=== PATIENT | female | born 1980 | race Caucasian/White ===

== ENCOUNTER 2017-01-30 05:16 | Emergency (ER) | payer SELFPAY ==
[2017-01-30] MEDS ORDERED: PREDNISONE 20 MG TABLET PO ONE (05:20)
[2017-01-30] MEDS ORDERED: IPRATROPIUM/ALBUTEROL 0.5-2.5 MG/3 ML AMPUL NEB ONE ×2 (05:20→06:12)
[2017-01-30] MEDS: ALBUTEROL SULFATE 0.083% NEB 2.5 MG/3 ML AMPUL NEB SCH ×2 (05:25→05:36)
--- NOTE | 2017-01-30 06:15 | ER Document Report ---
ED General - General Chief Complaint: Asthma Exacerbation Stated Complaint: DIFFICULTY BREATHING Time Seen by Provider: 01/30/17 06:07 Mode of Arrival: Ambulatory Information source: Patient Notes: 36-year-old female history of asthma who smokes 2 cigarettes daily who was last intubated 15 years ago presents with complaints of shortness of breath. Patient denies any DVT or PE risk factors no she has been wheezing a very tight over the past 2 days. Patient denies any fevers or productive cough TRAVEL OUTSIDE OF THE [place] IN LAST 30 DAYS: No - HPI Onset: Other Onset/Duration: Persistent Quality of pain: No pain Severity: Mild Pain Level: Denies Associated symptoms: Nonproductive cough, Shortness of breath Exacerbated by: Walking Relieved by: Denies Similar symptoms previously: Yes Recently seen / treated by doctor: Yes - Related Data Allergies/Adverse Reactions: Penicillins Allergy (Intermediate, Verified 05/05/14 02:26) Rash, Hives metronidazole [Metronidazole] Adverse Reaction (Verified 10/22/15 22:15) Past Medical History - Social History Smoking Status: Current Every Day Smoker Cigarette use (# per day): Yes Chew tobacco use (# tins/day): No Smoking Education Provided: Yes - Patient counselled regarding cessation for 4 minutes Family History: CAD, CVA, DM, Hyperlipidemia, Hypertension, Other - asthma Patient has suicidal ideation: No Patient has homicidal ideation: No Pulmonary Medical History: Reports: Hx Asthma, Hx COPD Renal/ Medical History: Denies: Hx Peritoneal Dialysis Psychiatric Medical History: Reports: Hx Depression Past Surgical History: Reports: Hx Gynecologic Surgery, Hx Orthopedic Surgery - Immunizations Immunizations up to date: Yes Hx Diphtheria, Pertussis, Tetanus Vaccination: Yes Review of Systems - Review of Systems Notes: PHYSICAL EXAMINATION: GENERAL: Well-appearing, well-nourished and in no acute distress. HEAD: Atraumatic, normocephalic. EYES: Pupils equal round and reactive to light, extraocular movements intact, conjunctiva are normal. ENT: Nares patent, oropharynx clear without exudates. Moist mucous membranes. NECK: Normal range of motion, supple without lymphadenopathy LUNGS: Breath sounds clear to auscultation bilaterally and equal. No wheezes rales or rhonchi. HEART: Regular rate and rhythm without murmurs ABDOMEN: Soft, nontender, nondistended abdomen. No guarding, no rebound. No masses appreciated. Female : deferred Musculoskeletal: Normal range of motion, no pitting or edema. No cyanosis. NEUROLOGICAL: Cranial nerves grossly intact. Normal speech, normal gait. Normal sensory, motor exams PSYCH: Normal mood, normal affect. SKIN: Warm, Dry, normal turgor, no rashes or lesions noted. Physical Exam - Vital signs Vitals: Temp Pulse Resp BP Pulse Ox 97.9 F 74 22 H 134/85 H 97 01/30/17 05:19 01/30/17 05:19 01/30/17 05:19 01/30/17 05:19 01/30/17 05:19 Course - Re-evaluation Re-evalutation: 01/30/17 06:13 Breath sounds at this time after 1 DuoNeb are clear, patient notes she is breathing better but is still having a little difficulty therefore I will give her a second DuoNeb otherwise patient looks well vital signs are stable and expect discharge After performing a Medical Screening Examination, I estimate there is LOW risk for ACUTE CORONARY SYNDROME, RESPIRATORY FAILURE, SEPSIS OR MENINGITIS, thus I consider the discharge disposition reasonable. I have reevaluated this patient multiple times and no significant life threatening changes are noted. The patient and I have discussed the diagnosis and risks, and we agree with discharging home with close follow-up. We also discussed returning to the Emergency Department immediately if new or worsening symptoms occur. We have discussed the symptoms which are most concerning (e.g., changing or worsening pain, trouble swallowing or breathing, neck stiffness, fever) that necessitate immediate return. 01/30/17 06:50 Patient's notes she wishes to be discharged, states second DuoNeb has resolved her symptoms Patient instructed on risks and benefits of medications prescribed. Denies any concerns regarding such. - Vital Signs Vital signs: Temp Pulse Resp BP Pulse Ox 97.9 F 74 22 H 134/85 H 97 01/30/17 05:19 01/30/17 05:19 01/30/17 05:19 01/30/17 05:19 01/30/17 05:19 Discharge - Discharge Clinical Impression: Asthma exacerbation, Shortness of breath Condition: Stable Disposition: HOME, SELF-CARE Instructions: Stop Smoking ([facility]), Asthma ([facility]) Additional Instructions: Follow up with your physician tomorrow for further care or return to the ED IMMEDIATELY if symptoms worsen or new concerns occur. If you cannot afford to follow up with your primary care physician a list of low cost clinics have been provided at the end of your discharge papers as well. Prescriptions: Albuterol Sulfate [Proair HFA Inhalation Aerosol 8.5 gm MDI] 2 puff IH Q4H PRN # 1 mdi PRN Reason: Prednisone [Deltasone 20 mg Tablet] 3 tab PO DAILY 5 Days
[2017-01-30 07:09] VITALS: BP 123/77
== END 2017-01-30 07:00 | disposition home or self-care (01) ==
LOC: ER 05:16
DX: J45.901 Unspecified asthma with (acute) exacerbation (principal); R06.02 Shortness of breath; F17.210 Nicotine dependence, cigarettes, uncomplicated
CPT/HCPCS: 94640 ×2; 99284; J7512; J7620

== ENCOUNTER 2017-05-15 09:00 | Emergency (ER) | payer SELFPAY ==
--- NOTE | 2017-05-15 09:34 | ER Document Report ---
HPI - HPI Pain Level: 4 - REPRODUCTIVE Reproductive: DENIES: : - DERM Skin Color: Normal Past Medical History - Social History Family History: CAD, CVA, DM, Hyperlipidemia, Hypertension, Other - asthma Patient has suicidal ideation: No Patient has homicidal ideation: No Pulmonary Medical History: Reports: Hx Asthma, Hx COPD Renal/ Medical History: Denies: Hx Peritoneal Dialysis Psychiatric Medical History: Reports: Hx Depression Past Surgical History: Reports: Hx Gynecologic Surgery, Hx Orthopedic Surgery - Immunizations Immunizations up to date: Yes Hx Diphtheria, Pertussis, Tetanus Vaccination: Yes Vertical Provider Document - INFECTION CONTROL TRAVEL OUTSIDE OF THE [place] IN LAST 30 DAYS: No - RESPIRATORY O2 Sat by Pulse Oximetry: 100 Course - Vital Signs Vital signs: Temp Pulse Resp BP Pulse Ox 97.6 F 64 20 137/88 H 100 05/15/17 09:24 05/15/17 09:24 05/15/17 09:24 05/15/17 09:24 05/15/17 09:24
[2017-05-15] MEDS ORDERED: IPRATROPIUM/ALBUTEROL 0.5-2.5 MG/3 ML AMPUL NEB ONE ×2 (09:40→09:43)
[2017-05-15] MEDS ORDERED: PREDNISONE 20 MG TABLET PO ONE (09:40)
[2017-05-15] MEDS ORDERED: ALBUTEROL SULFATE 0.083% NEB 2.5 MG/3 ML AMPUL NEB ONE (09:40)
--- NOTE | 2017-05-15 09:41 | ER Document Report ---
ED Respiratory Problem - General Chief Complaint: Asthma Exacerbation Stated Complaint: DIFFICULTY BREATHING Time Seen by Provider: 05/15/17 09:34 Mode of Arrival: Ambulatory Information source: Patient Notes: 36-year-old female with a history of asthma he has increased wheezing and tightness today. She is using her neck accessory muscles with pursed lipped exhalation. She ran out of albuterol for her nebulizer. Quit smoking 1 month ago. No fever or chills. No chest pain. TRAVEL OUTSIDE OF THE [place] IN LAST 30 DAYS: No - Related Data Allergies/Adverse Reactions: Penicillins Allergy (Intermediate, Verified 05/15/17 09:24) Rash, Hives metronidazole [Metronidazole] Adverse Reaction (Verified 05/15/17 09:24) Past Medical History - General Information source: Patient - Social History Smoking Status: Former Smoker Frequency of alcohol use: None Drug Abuse: None Lives with: Family Family History: CAD, CVA, DM, Hyperlipidemia, Hypertension, Other - asthma Patient has suicidal ideation: No Patient has homicidal ideation: No Pulmonary Medical History: Reports: Hx Asthma, Hx COPD Renal/ Medical History: Denies: Hx Peritoneal Dialysis Psychiatric Medical History: Reports: Hx Depression Past Surgical History: Reports: Hx Gynecologic Surgery, Hx Orthopedic Surgery - Immunizations Immunizations up to date: Yes Hx Diphtheria, Pertussis, Tetanus Vaccination: Yes Review of Systems - Review of Systems Constitutional: No symptoms reported EENT: No symptoms reported Cardiovascular: No symptoms reported Respiratory: See HPI Gastrointestinal: No symptoms reported Genitourinary: No symptoms reported Female Genitourinary: No symptoms reported Musculoskeletal: No symptoms reported Skin: No symptoms reported Hematologic/Lymphatic: No symptoms reported Neurological/Psychological: No symptoms reported Physical Exam - Vital signs Vitals: Temp Pulse Resp BP Pulse Ox 97.6 F 63 26 H 137/98 H 100 05/15/17 09:23 05/15/17 09:23 05/15/17 09:23 05/15/17 09:23 05/15/17 09:23 Interpretation: Tachypneic - General General appearance: Alert In distress: None - HEENT Head: Normocephalic, Atraumatic Eyes: Normal Conjunctiva: Normal Pupils: PERRL Nasal: Normal Mouth/Lips: Normal Neck: Supple. No: Lymphadenopathy - Respiratory Respiratory status: No respiratory distress Chest status: Nontender Breath sounds: Decreased air movement, Wheezing - Faint expiratory bilateral, not moving much air Chest palpation: Normal - Cardiovascular Rhythm: Regular Heart sounds: Normal auscultation Murmur: No - Abdominal Inspection: Normal Distension: No distension Bowel sounds: Normal Tenderness: Nontender Organomegaly: No organomegaly - Back Back: Normal, Nontender. No: CVA tenderness - Extremities General upper extremity: Normal inspection, Nontender, Normal color, Normal ROM , Normal temperature General lower extremity: Normal inspection, Nontender, Normal color, Normal ROM , Normal temperature, Normal weight bearing. No: Savannah's sign - Neurological Neuro grossly intact: Yes Cognition: Normal Orientation: AAOx4 [place] Coma Scale Eye Opening: Spontaneous [place] Coma Scale Verbal: Oriented [place] Coma Scale Motor: Obeys Commands [place] Coma Scale Total: 15 Speech: Normal Motor strength normal: LUE, RUE, LLE, RLE Sensory: Normal - Psychological Associated symptoms: Normal affect, Normal mood - Skin Skin Temperature: Warm Skin Moisture: Dry Skin Color: Normal Skin irregularity: negative: Rash Course - Re-evaluation Re-evalutation: 05/15/17 11:22 Patient no longer in distress respiratory rate is normal no pursed lip breathing there is no wheezing at this time. Moving air better, chest x-ray looks like COPD no infiltrate. - Vital Signs Vital signs: Temp Pulse Resp BP Pulse Ox 97.3 F 60 16 125/65 100 05/15/17 11:33 05/15/17 11:33 05/15/17 11:33 05/15/17 11:33 05/15/17 11:33 Discharge - Discharge Clinical Impression: Asthma exacerbation Condition: Good Disposition: HOME, SELF-CARE Instructions: Asthma ([facility]), Inhaled Bronchodilators ([facility]), Steroid Medication Additional Instructions: to er if worse use the nebulizer and MDI steroids for 4 more days Referral to Dr. Tay the custom grinder Please complete the patient satisfaction survey if you get one, and return it.. If you do not receive a survey, then you can go to the [facility] website, [email or web address] and place your comments about your very good care. Thank you very much. It was a pleasure being your medical provider today. Prescriptions: Albuterol Sulfate [Ventolin 0.083% Neb 2.5 mg/3 mL Ampul] 2.5 mg NEB Q3HP PRN # 25 vial PRN Reason: Albuterol Sulfate [Proair HFA Inhalation Aerosol 8.5 gm MDI] 2 puff IH Q3HP PRN #1 [id number].aer.[email or web address] PRN Reason: Prednisone [Deltasone 20 mg Tablet] 40 mg PO DAILY #8 tablet Forms: Return to Work Referrals: JUAN TAY MD [ACTIVE STAFF] - Follow up as needed
[2017-05-15 11:34] VITALS: BP 125/65
--- NOTE | 2017-05-15 11:53 | RADIOLOGY REPORT (SQ) ---
EXAM DESCRIPTION: CHEST PA/LAT COMPLETED DATE/TIME: 05/15/2017 11:08 am REASON FOR STUDY: sob, hx asthma COMPARISON: 01/30/2016, 09/16/2014 EXAM PARAMETERS: NUMBER OF VIEWS: two views TECHNIQUE: Digital Frontal and Lateral radiographic views of the chest acquired. RADIATION DOSE: NA LIMITATIONS: none FINDINGS: LUNGS AND PLEURA: No opacities, masses or pneumothorax. No pleural effusion. MEDIASTINUM AND HILAR STRUCTURES: No masses or contour abnormalities. HEART AND VASCULAR STRUCTURES: Heart normal size. No evidence for failure. BONES: No acute findings. HARDWARE: None in the chest. OTHER: No other significant finding. IMPRESSION: NO SIGNIFICANT RADIOGRAPHIC FINDING IN THE CHEST. TECHNICAL DOCUMENTATION: JOB ID: [id number] [employer]- All Rights Reserved
== END 2017-05-15 11:34 | disposition home or self-care (01) ==
LOC: ER 09:00
DX: J44.9 Chronic obstructive pulmonary disease, unspecified (principal); Z87.891 Personal history of nicotine dependence; Z88.0 Allergy status to penicillin
CPT/HCPCS: 94640 ×2; 99283; 71020; J7512; J7620

== ENCOUNTER 2017-10-15 10:22 | Emergency (ER) | payer SELFPAY ==
[2017-10-15] MEDS ORDERED: MORPHINE SULFATE IR 15 MG TABLET PO ONE (11:38)
--- NOTE | 2017-10-15 11:41 | ER Document Report ---
HPI - HPI Pain Level: 4 Notes: Patient is a 37-year-old female who presents the ED complaining of left knee pain, swelling, and bruising status post injury yesterday. Patient states that she was ice skating when she fell directly on her knee. Patient states that she cannot weight-bear and she cannot walk on that knee. Patient states that she has trouble even flexing the knee without severe pain. Patient has not had anything for pain at this time. She has no other concerns or complaints. Patient states that she did have surgery twice on that knee before. Denies any headache, fever, head injury, neck pain, chest pain, palpitations, syncope, cough, shortness of breath, wheeze, dyspnea, abdominal pain, nausea/vomiting/ diarrhea, urinary retention, dysuria, hematuria, loss of control of bowel or bladder, numbness/tingling, saddle anesthesia, muscle paralysis/weakness, or rash. - ROS Systems Reviewed and Negative: Yes All other systems reviewed and negative - CONSTITUTIONAL Constitutional: DENIES: Fever, Chills - REPRODUCTIVE Reproductive: DENIES: : - MUSCULOSKELETAL Musculoskeletal: REPORTS: Extremity pain - left knee Past Medical History - Social History Smoking Status: Current Every Day Smoker Chew tobacco use (# tins/day): No Frequency of alcohol use: None Drug Abuse: None Family History: CAD, CVA, DM, Hyperlipidemia, Hypertension, Other - asthma Patient has suicidal ideation: No Patient has homicidal ideation: No Pulmonary Medical History: Reports: Hx Asthma, Hx COPD Renal/ Medical History: Denies: Hx Peritoneal Dialysis Psychiatric Medical History: Reports: Hx Depression Past Surgical History: Reports: Hx Gynecologic Surgery - endometriosis, Hx Orthopedic Surgery - left knee x 2 - Immunizations Immunizations up to date: Yes Hx Diphtheria, Pertussis, Tetanus Vaccination: Yes Vertical Provider Document - CONSTITUTIONAL Agree With Documented VS: Yes Notes: PHYSICAL EXAMINATION: GENERAL: Well-appearing, well-nourished and in no acute distress. LUNGS: Breath sounds clear to auscultation bilaterally and equal. No wheezes rales or rhonchi. HEART: Regular rate and rhythm without murmurs, rubs, gallops. Musculoskeletal: Left knee: + ecchymosis anteriorly, + swelling anteriorly, LROM to passive/active. Pt would not allow for flexion of the knee of further manipulation for testing. Extremities: No cyanosis, clubbing, or edema b/l. Peripheral pulses 2+. Capillary refill less than 3 seconds. NEUROLOGICAL: Normal speech. Normal sensory, motor exams PSYCH: Normal mood, normal affect. SKIN: Warm, Dry, normal turgor, no rashes or lesions noted. - INFECTION CONTROL TRAVEL OUTSIDE OF THE [place] IN LAST 30 DAYS: No - RESPIRATORY O2 Sat by Pulse Oximetry: 100 Course - Re-evaluation Re-evalutation: 10/15/17 11:43 Patient is an afebrile, well-hydrated, 37-year-old female who presents the ED with a left knee contusion. Vitals are stable. PE is otherwise unremarkable for any neurovascular compress, obvious tendon/ligament rupture, obvious fracture/dislocation, septic joint. X-ray was unremarkable for any acute pathology. Patient would not allow for thorough physical exam however. Knee immobilizer was placed and crutches were provided. I did give her 1 tablet of morphine sulfate today. I will send him a prescription for naproxen. Recommend conservative measures for symptoms otherwise. Schedule an appointment with orthopedics for further evaluation and management. Recheck with your PCM in 1 week as well. Return to the ED with any worsening/ concerning symptoms otherwise as reviewed discharge. Patient is in agreement. - Vital Signs Vital signs: Temp Pulse Resp BP Pulse Ox 98.7 F 72 16 148/71 H 100 10/15/17 10:27 10/15/17 10:27 10/15/17 10:27 10/15/17 10:27 10/15/17 10:27 Discharge - Discharge Clinical Impression: Contusion of left knee Qualifiers: Encounter type: initial encounter Qualified Code(s): S80.02XA - Contusion of left knee, initial encounter Condition: Stable Disposition: HOME, SELF-CARE Instructions: Ice & Elevation ([facility]), Knee Immobilizing Splint ([facility]), Use of Crutches ([facility]) Additional Instructions: Rest, Ice, Compression, Elevation Tylenol/ibuprofen as needed Light stretches daily Strength exercises as able Moist heat and massage may help F/u with your PCP in 3-5 days for a recheck Call and schedule an appointment with orthopedics for further evaluation and management Return to the ED with any worsening symptoms and/or development of fever, headache, chest pain, palpitations, syncope, shortness of breath, trouble breathing, abdominal pain, n/v/d, muscle weakness/paralysis, numbness/tingling, swelling, redness, or other worsening symptoms that are concerning to you. Prescriptions: Naproxen 500 mg PO BID PRN #30 tablet PRN Reason: Forms: Elevated Blood Pressure, Smoking Cessation Education Referrals: [facility] ([facility]) [Provider Group] - Follow up as needed
--- NOTE | 2017-10-15 11:42 | RADIOLOGY REPORT (SQ) ---
EXAM DESCRIPTION: KNEE LEFT 4 VIEW COMPLETED DATE/TIME: 10/15/2017 11:33 am REASON FOR STUDY: left knee pain s/p injury COMPARISON: None. NUMBER OF VIEWS: Four views. TECHNIQUE: AP, lateral, and both oblique radiographic images acquired of the left knee. LIMITATIONS: None. FINDINGS: MINERALIZATION: Normal. BONES: No acute fracture or dislocation. No worrisome bone lesions. JOINT: No effusion. SOFT TISSUES: No soft tissue swelling. No radio-opaque foreign body. OTHER: No other significant finding. IMPRESSION: NEGATIVE STUDY OF THE LEFT KNEE. NO RADIOGRAPHIC EVIDENCE OF ACUTE INJURY. TECHNICAL DOCUMENTATION: JOB ID: [id number] [employer]- All Rights Reserved
[2017-10-15 12:01] VITALS: BP 147/98
== END 2017-10-15 12:01 | disposition home or self-care (01) ==
LOC: ER 10:22
DX: S80.02XA Contusion of left knee, initial encounter (principal); M25.562 Pain in left knee; V00.211A Fall from ice-skates, initial encounter; Y93.21 Activity, ice skating; F17.200 Nicotine dependence, unspecified, uncomplicated; J44.9 Chronic obstructive pulmonary disease, unspecified
CPT/HCPCS: 99283; 73562; L1830

== ENCOUNTER → 2018-05-06 | Outpatient (CLI) | payer MEDICAID ==
--- NOTE | 2018-05-06 16:39 | RADIOLOGY REPORT (SQ) ---
EXAM DESCRIPTION: HAND RIGHT 3 VIEWS COMPLETED DATE/TIME: 05/06/2018 4:15 pm REASON FOR STUDY: RT HAND PAIN;RT WRIST PAIN M79.641 PAIN IN RIGHT HAND M25.531 PAIN IN RIGHT WRIS T COMPARISON: None. EXAM PARAMETERS: NUMBER OF VIEWS: Three views. TECHNIQUE: AP, lateral and oblique radiographic images acquired of the right hand. LIMITATIONS: None. FINDINGS: MINERALIZATION: Normal. BONES: No acute fracture or dislocation. No worrisome bone lesions. JOINTS: No effusions. SOFT TISSUES: No soft tissue swelling. No foreign body. OTHER: No other significant finding. IMPRESSION: NEGATIVE STUDY OF THE RIGHT HAND. NO RADIOGRAPHIC EVIDENCE OF ACUTE INJURY. TECHNICAL DOCUMENTATION: JOB ID: [id number] [employer]- All Rights Reserved Reading location - IP/workstation name: [email or web address]
--- NOTE | 2018-05-06 16:46 | RADIOLOGY REPORT (SQ) ---
EXAM DESCRIPTION: WRIST RIGHT 3 VIEWS COMPLETED DATE/TIME: 05/06/2018 4:15 pm REASON FOR STUDY: RT HAND PAIN;RT WRIST PAIN M79.641 PAIN IN RIGHT HAND M25.531 PAIN IN RIGHT WRIS T COMPARISON: None. NUMBER OF VIEWS: Three views. TECHNIQUE: AP, lateral, and oblique radiographic images acquired of the right wrist. LIMITATIONS: None. FINDINGS: MINERALIZATION: Normal. BONES: No acute fracture or dislocation. No worrisome bone lesions. Normal alignment. SOFT TISSUES: No soft tissue swelling. No foreign body. OTHER: No other significant finding. IMPRESSION: NEGATIVE STUDY OF THE RIGHT WRIST. NO RADIOGRAPHIC EVIDENCE OF ACUTE INJURY. TECHNICAL DOCUMENTATION: JOB ID: [id number] [employer]- All Rights Reserved Reading location - IP/workstation name: [email or web address]
== END ==
LOC: OD 15:31
PROVIDERS: ATTEND Nurse Practitioner Family
DX: M79.641 Pain in right hand (principal); M25.531 Pain in right wrist

== ENCOUNTER → 2018-07-28 | Outpatient (CLI) | payer MEDICAID ==
[2018-07-28 14:40] LABS: EPITHELIALS (WET MOUNT) 3+ EPITHELIALS SEEN; T.VAGINALIS (WET MOUNT) NO TRICHOMONAS SEEN; WBCS (WET MOUNT) FEW WBCS SEEN; YEAST (WET MOUNT) NO YEAST SEEN
[2018-07-28 16:05] LABS: CHLAM PCR NOT DETECTED (NOT DETECT); GON PCR NOT DETECTED (NOT DETECT)
== END ==
LOC: LAB 12:25
PROVIDERS: ATTEND Nurse Practitioner Family
DX: N89.8 Other specified noninflammatory disorders of vagina (principal); R10.9 Unspecified abdominal pain
CPT/HCPCS: 87086; 87210; 87491; 87591

== ENCOUNTER → 2018-08-22 | Outpatient (CLI) | payer MEDICAID ==
--- NOTE | 2018-08-22 13:15 | WOMENS IMAGING REPORT ---
EXAM DESCRIPTION: BILAT DIAGNOSTIC MAMMO W/CAD COMPLETED DATE/TIME: 08/22/2018 1:04 pm REASON FOR STUDY: BREAST PAIN N64.4 MASTODYNIA COMPARISON: None. TECHNIQUE: Standard craniocaudal and mediolateral oblique views of each breast recorded using digita l acquisition. True lateral views of both breasts. LIMITATIONS: None. FINDINGS: RIGHT BREAST MASSES: No suspicious masses. CALCIFICATIONS: No new or suspicious calcifications. ARCHITECTURAL DISTORTION: None. DEVELOPING DENSITY: None. ASYMMETRY: None noted. OTHER: No other significant findings. LEFT BREAST MASSES: No suspicious masses. CALCIFICATIONS: No new or suspicious calcifications. ARCHITECTURAL DISTORTION: None. DEVELOPING DENSITY: None. ASYMMETRY: None noted. OTHER: No other significant finding. Read with the assistance of CAD: .[facility] - R2 C[employer]ova Version 1.3 .[facility] - R2 Cenova Version 1.[address] - R2 Cenova Version 2.4 .[facility] - R2 Cenova Version 2.4 .[facility] - R2 [employer] Version 9.2 IMPRESSION: No evidence of malignancy. BREAST DENSITY: b. There are scattered areas of fibroglandular density. BIRAD: 1 Negative. RECOMMENDATION: RECOMMENDED FOLLOW UP: Annual mammographic follow-up. SPECIFIC INTERVENTION/IMAGING/CONSULTATION RECOMMENDED:No additional intervention/ imaging/consultati on needed at this time. COMMUNICATION:The imaging findings were not discussed with the patient. Her referring provider has be en notified of the findings. COMMENT: The patient has been notified of the results by letter per SA requirements. Additional no tification policies are in place for contacting patient with suspicious or incomplete findings. Quality ID #[id number]: The [employer] recommends an annual screening mammogram for women aged 40 years or over. This facility utilizes a reminder system to ensure that all patients receive reminder letters, and/or direct phone calls for appointments. This includes reminders for routine scr eening mammograms, diagnostic mammograms, or other Breast Imaging Interventions when appropriate. Th is patient will be placed in the appropriate reminder system. The [employer] (ACR) has developed recommendations for screening MRI of the breast s in certain patient populations, to be used in conjunction with mammography. Breast MRI surveillanc e may be appropriate for women with more than 20% lifetime risk of developing breast cancer as deter mined by genetic testing, significant family history of the disease, or history of mantle radiation f or Hodgkins Disease. ACR Practice Guidelines 2008. TECHNICAL DOCUMENTATION: FINDING NUMBER: (1) ASSESSMENT: (1) JOB ID: [id number] [employer]- All Rights Reserved Reading location - IP/workstation name: [facility]
== END ==
LOC: WI 12:21
PROVIDERS: ATTEND Family Medicine
DX: N64.4 Mastodynia (principal)
CPT/HCPCS: 77066

== ENCOUNTER 2018-10-16 05:41 | Emergency (ER) | payer MEDICAID ==
[2018-10-16 05:47] VITALS: BP 144/108
[2018-10-16] MEDS ORDERED: METHYLPREDNISOLONE INJ 125 MG/2 ML SDV IM ONE (06:18)
[2018-10-16] MEDS ORDERED: IPRATROPIUM/ALBUTEROL 0.5-2.5 MG/3 ML AMPUL NEB ONE (06:18)
--- NOTE | 2018-10-16 06:57 | ER Document Report ---
ED Respiratory Problem - General Chief Complaint: Asthma Exacerbation Stated Complaint: DIFFICULTY BREATHING Time Seen by Provider: 10/16/18 06:17 Primary Care Provider: LILIAN ELMORE MD [Primary Care Provider] - Follow up as needed Notes: 38-year-old female with history of asthma presents with several days of wheezing. She is been using her inhaler every 4 hours at home without any relief. She states she has got a cold recently. This usually sets off the patient's asthma. The patient states has had some nasal congestion little scratchy throat. Denies fever chills. Denies chest pain but has had tightness. States she is wheezing and this feels like her prior asthma denies calf pain or leg swelling denies abdominal pain denies nausea vomiting diarrhea exertion makes the difficulty breathing worse TRAVEL OUTSIDE OF THE [place] IN LAST 30 DAYS: No - Related Data Allergies/Adverse Reactions: Penicillins Allergy (Intermediate, Verified 10/15/17 10:25) Rash, Hives metronidazole [Metronidazole] Adverse Reaction (Verified 10/15/17 10:25) Past Medical History - Social History Smoking Status: Unknown if Ever Smoked Family History: CAD, CVA, DM, Hyperlipidemia, Hypertension, Other - asthma Pulmonary Medical History: Reports: Hx Asthma, Hx COPD Renal/ Medical History: Denies: Hx Peritoneal Dialysis Psychiatric Medical History: Reports: Hx Depression Past Surgical History: Reports: Hx Gynecologic Surgery - endometriosis, Hx Orthopedic Surgery - left knee x 2 - Immunizations Immunizations up to date: Yes Hx Diphtheria, Pertussis, Tetanus Vaccination: Yes Review of Systems - Review of Systems Constitutional: Recent illness - Mild cold URI. denies: Chills, Fever EENT: Nose congestion Cardiovascular: denies: Chest pain Respiratory: Cough, Short of breath Gastrointestinal: denies: Diarrhea, Nausea, Vomiting Genitourinary: denies: Dysuria Female Genitourinary: denies: -: Yes All other systems reviewed and negative Physical Exam - Vital signs Vitals: Temp Pulse Resp BP Pulse Ox 98.8 F 89 20 144/108 H 98 10/16/18 05:44 10/16/18 05:44 10/16/18 05:44 10/16/18 05:44 10/16/18 05:44 - Notes Notes: GENERAL_APPEARANCE: well_nourished, alert, cooperative VITALS: reviewed, see vital signs table. HEAD: no_swelling\tenderness on the head. EYES: PERRL, EOMI, conjunctiva_clear. NOSE: Clear_nasal_discharge. MOUTH: (-)decreased moisture. THROAT: no_throat_inflammation, no_airway_obstruction. no_lymphadenopathy NECK: supple, no_neck_tenderness, (-)thyromegaly. BACK: no_back_tenderness. CHEST_WALL: no_chest_tenderness. LUNGS: Scattered_wheezing, no_rales, no_rhonchi, (-)accessory muscle use, fair air exchange bilateral. HEART: normal_rate, normal_rhythm, normal_S1, normal_S2, (-)S3, (-)S4, no_murmur, no_rub. ABDOMEN: soft, no_abd_tenderness, (-)guarding, (-)rebound, no_organomegaly, no_abd_masses. EXTREMITIES: good pulses in all_extremities, no_swelling\tenderness in the ext remities, no_edema. SKIN: warm, dry, good_color, no_rash. MENTAL_STATUS: speech_clear, oriented_X_3, normal_affect, responds_appropriately to questions. Course - Re-evaluation Re-evalutation: 10/16/18 06:54 38-year-old female presents with an asthma exacerbation. Patient given aerosol treatment here a shot of Solu-Medrol. She does not have an oxygen requirement is doing well. Patient was improved after aerosol treatments. The patient will be discharged home with a prednisone taper Z-Huber. She has a follow-up with her doctor today. - Vital Signs Vital signs: Temp Pulse Resp BP Pulse Ox 98.8 F 89 20 144/108 H 98 10/16/18 05:44 10/16/18 05:44 10/16/18 05:44 10/16/18 05:44 10/16/18 05:44 Discharge - Discharge Clinical Impression: Asthma exacerbation Qualifiers: Asthma severity: moderate Asthma persistence: unspecified Qualified Code(s): J45.901 - Unspecified asthma with (acute) exacerbation Disposition: HOME, SELF-CARE Instructions: Asthma ([facility]) Prescriptions: Azithromycin [Zithromax 250 mg Tablet] 250 mg PO ASDIR PRN #6 tablet PRN Reason: Prednisone [Deltasone 20 mg Tablet] 3 tab PO DAILY 5 Days tablet Referrals: LILIAN ELMORE MD [Primary Care Provider] - Follow up as needed
== END 2018-10-16 07:10 | disposition home or self-care (01) ==
LOC: ER 05:41
DX: J45.901 Unspecified asthma with (acute) exacerbation (principal); J44.9 Chronic obstructive pulmonary disease, unspecified; R09.81 Nasal congestion; R07.89 Other chest pain; R05 Cough; Z88.0 Allergy status to penicillin
CPT/HCPCS: 94640; 99284; 96372; J2930; J7620

== ENCOUNTER → 2018-11-13 | Outpatient (CLI) | payer MEDICAID ==
[2018-11-13 18:51] LABS: BACTERIA (WET MOUNT) 4+ BACTERIA SEEN; EPITHELIALS (WET MOUNT) 4+ EPITHELIALS SEEN; RBCS (WET MOUNT) NO RBCS SEEN; T.VAGINALIS (WET MOUNT) NO TRICHOMONAS SEEN; WBCS (WET MOUNT) 2+ WBCS SEEN; YEAST (WET MOUNT) NO YEAST SEEN
== END ==
LOC: LAB 18:24
PROVIDERS: ATTEND Nurse Practitioner Family
DX: N89.8 Other specified noninflammatory disorders of vagina (principal)
CPT/HCPCS: 87210

== ENCOUNTER → 2019-04-16 | Outpatient (CLI) | payer MEDICAID ==
[2019-04-16 14:38] LABS: ALANINE AMINOTRANSFERASE 20 U/L (9-52); ALBUMIN 4.5 g/dL (3.5-5.0); ALKALINE PHOSPHATASE 52 U/L (38-126); ASPARTATE AMINO TRANSFERASE 24 U/L (14-36); BILIRUBIN,DIRECT 0.3 mg/dL (0.0-0.4); BILIRUBIN,TOTAL 0.8 mg/dL (0.2-1.3); TOTAL PROTEIN 7.5 g/dL (6.3-8.2)
== END ==
LOC: OD 13:33
PROVIDERS: ATTEND Podiatrist Foot & Ankle Surgery
DX: B35.1 Tinea unguium (principal)
CPT/HCPCS: 36415; 80076

== ENCOUNTER 2019-10-20 18:03 | Emergency (ER) | payer MEDICAID ==
--- NOTE | 2019-10-20 19:04 | ER Document Report ---
ED Medical Screen (RME) - General Chief Complaint: Headache Stated Complaint: LIGHTHEADED,HEADACHE,BLOOD IN STOOL Time Seen by Provider: 10/20/19 19:03 Primary Care Provider: DASH TORRES DPM [Primary Care Provider] - Follow up as needed Notes: 39 y/o female presents bleeding from rectum for 5:47 pm and lightheaded and headache. Never required a blood transfusion. No nausea/vomiting. Left side of abdomen. Nontoxic, well appearing. Pt does not appear overly pale. I have greeted and performed a rapid initial assessment of this patient. A comprehensive ED assessment and evaluation of the patient, analysis of test results and completion of the medical decision making process with be conducted by additional ED providers. TRAVEL OUTSIDE OF THE [place] IN LAST 30 DAYS: No - Related Data Allergies/Adverse Reactions: Penicillins Allergy (Intermediate, Verified 10/15/17 10:25) Rash, Hives metronidazole [Metronidazole] Adverse Reaction (Verified 10/15/17 10:25) Past Medical History - Social History Family history: Reviewed & Not Pertinent Pulmonary Medical History: Reports: Hx Asthma, Hx COPD Renal/ Medical History: Denies: Hx Peritoneal Dialysis Psychiatric Medical History: Reports: Hx Depression Past Surgical History: Reports: Hx Gynecologic Surgery - endometriosis, Hx Orthopedic Surgery - left knee x 2 - Immunizations Immunizations up to date: Yes Hx Diphtheria, Pertussis, Tetanus Vaccination: Yes Doctor's Discharge - Discharge Referrals: DASH TORRES DPM [Primary Care Provider] - Follow up as needed
[2019-10-20 20:21] LABS: ABSOLUTE EOSINOPHILS # (AUTO) 0.2 10^3/uL (0.0-0.6); ABSOLUTE LYMPHOCYTES (AUTO) 1.1 10^3/uL (0.5-4.7); ABSOLUTE MONOCYTES (AUTO) 0.4 10^3/uL (0.1-1.4); ABSOLUTE NEUT (AUTO) 3.4 10^3/uL (1.7-8.2); BASOPHILS % (AUTO) 0.7 % (0-2); EOSINOPHILS % (AUTO) 3.8 % (0-6); HEMATOCRIT 42.7 % (36.0-47.0); HEMOGLOBIN 14.7 g/dL (12.0-15.5); LYMPHOCYTES % (AUTO) 21.7 % (13-45); MEAN CORPUSCULAR HEMOGLOBIN 31.4 pg (27.0-33.4); MEAN CORPUSCULAR HGB CONC 34.4 g/dL (32.0-36.0); MEAN CORPUSCULAR VOLUME 91 fl (80-97); MONOCYTES % (AUTO) 7.5 % (3-13); PLATELET COUNT 139 10^3/uL (150-450); RED BLOOD COUNT 4.68 10^6/uL (3.72-5.28); RED CELL DISTRIBUTION WIDTH 13.7 % (11.5-14.0); SEGMENTED NEUTROPHILS % (AUTO) 66.3 % (42-78); TOTAL CELLS COUNTED % (AUTO) 100 %; WHITE BLOOD COUNT 5.1 10^3/uL (4.0-10.5)
[2019-10-20 20:25] LABS: APPEARANCE,URINE CLEAR; BILIRUBIN,URINE NEGATIVE (NEGATIVE); COLOR,URINE STRAW; GLUCOSE, URINE NEGATIVE (NEGATIVE); KETONES,URINE NEGATIVE (NEGATIVE); PROTEIN,URINE NEGATIVE (NEGATIVE); URINE SPECIFIC GRAVITY 1.003; UROBILINOGEN,URINE NEGATIVE mg/dL (<2.0)
--- NOTE | 2019-10-20 20:40 | ER Document Report ---
Doctor's Note Notes: 10/20/19 20:38 RN informed this provider that patient is refusing an IV. This provider was called into room. Discussed need for IV at length with patient. Patient is refusing all treatments and work-up at this time. Patient is alert and oriented. Discussed risks of not completing treatment to include stroke, MS, syncope, paralysis, . Patient voices understanding and states she still wants to leave AGAINST MEDICAL ADVICE. Patient's family is at bedside and were also informed of these risks. Patient encouraged to come back for work-up at any time. Patient also encouraged to follow-up with PCP. Patient voices understanding and states she still wants to leave AGAINST MEDICAL ADVICE. Patient to sign AMA form.
[2019-10-20 20:41] LABS: ALBUMIN 4.9 g/dL (3.5-5.0); ALKALINE PHOSPHATASE 52 U/L (38-126); ANION GAP 9 (5-19); ASPARTATE AMINO TRANSFERASE 28 U/L (14-36); BILIRUBIN,TOTAL 0.4 mg/dL (0.2-1.3); BLOOD UREA NITROGEN 10 mg/dL (7-20); CALCIUM 9.5 mg/dL (8.4-10.2); CARBON DIOXIDE 25 mmol/L (22-30); CHLORIDE 106 mmol/L (98-107); GLUCOSE 89 mg/dL (75-110); POTASSIUM 4.2 mmol/L (3.6-5.0); TOTAL PROTEIN 8.1 g/dL (6.3-8.2)
[2019-10-20 20:43] LABS: URINE AMPHETAMINES SCREEN NEGATIVE; URINE BARBITURATES SCREEN NEGATIVE; URINE BENZODIAZEPINES SCREEN NEGATIVE; URINE COCAINE SCREEN NEGATIVE; URINE MARIJUANA (THC) SCREEN NEGATIVE; URINE METHADONE SCREEN NEGATIVE; URINE PHENCYCLIDINE SCREEN NEGATIVE
[2019-10-20] MEDS ORDERED: MORPHINE SULFATE 10 MG/ML INJ IV ONE ×2 (21:01→23:00)
[2019-10-20] MEDS ORDERED: ONDANSETRON HCL INJ/PF 4 MG/2 ML SDV IV ONE (21:01)
--- NOTE | 2019-10-20 21:51 | EKG REPORT ---
SEVERITY:- ABNORMAL ECG - SINUS RHYTHM NONSPECIFIC T ABNORMALITIES, LATERAL LEADS : Confirmed by: Meli Ponce MD 20-Oct-2019 21:50:55
--- NOTE | 2019-10-20 22:09 | RADIOLOGY REPORT (SQ) ---
EXAM DESCRIPTION: CT HEAD WITHOUT IV CONTRAST COMPLETED DATE/TME: 10/20/2019 20:32 CLINICAL HISTORY: 39 years, Female, headache COMPARISON: None. TECHNIQUE: 195 Images stored on PACS. All CT scanners at this facility use dose modulation, iterative reconstruction, and/or weight based dosing when appropriate to reduce radiation dose to as low as reasonably achievable (ALARA). [facility]: Dose Right [facility]: CareDose [facility]: Dose Right [facility]: Teradose 4D [facility]: [employer] LIMITATIONS: None. FINDINGS: The globes are intact. Minor mucosal thickening of the maxillary sinuses bilaterally. There is no displaced or depressed skull fracture. There is no intra or extra-axial hemorrhage. CT is limited for evaluation of acute infarct. There is no CT evidence for large or territorial acute infarct. There is no mass or midline shift IMPRESSION: Unremarkable unenhanced CT brain TECHNICAL DOCUMENTATION: Quality ID # 436: Final reports with documentation of one or more dose reduction techniques (e.g., Automated exposure control, adjustment of the mA and/or kV according to patient size, use of iterative reconstruction technique) copyright 2011 [employer]- All Rights Reserved
--- NOTE | 2019-10-20 22:21 | RADIOLOGY REPORT (SQ) ---
EXAM DESCRIPTION: [facility]: CT ABDOMEN PELVIS WITH IV CONTRAST CLINICAL HISTORY: 39 years Female; abd pain, rectal bleeding; TECHNIQUE: CT of the abdomen and pelvis using intravenous contrast. All CT scans at this facility use dose modulation, iterative reconstruction, and/or weight based dosing when appropriate to reduce radiation dose to as low as reasonably achievable. COMPARISON: CT 04/02/2014 FINDINGS: Abdomen: Liver:No focal lesions. No intrahepatic ductal distention. Gallbladder:Nondistended Pancreas: Duct is 3-4 mm, slightly prominent. However, there is no acute peripancreatic edema or suspicious focal pancreatic lesion. This has not changed since 2013. Spleen:Within normal limits Right kidney:No hydronephrosis. No focal lesion. Left kidney:No hydronephrosis. No focal lesion. Adrenal glands:Within normal limits Vascular structures:Within normal limits Pelvis: Small bowel:No significant distention. Appendix:Within normal limits Colon: Scattered diverticula throughout the colon. Some of these, including in the proximal colon, measuring up to 1.5 cm. No colonic distention or acute pericolonic edema. There is a trace amount of fluid in the cul-de-sac. No free air. Bones: No acute bone findings. Bladder: Unremarkable. Slightly irregular low-density structure in the left ovary 12 mm diameter is typical for recently ruptured dominant follicle. No adnexal enlargement. Uterus is slightly retroverted but otherwise unremarkable. IMPRESSION: 1. Extensive colonic diverticulosis, but no CT evidence for acute diverticulitis. Cannot exclude a bleeding diverticulum or early diverticulitis. 2. 12 mm left ovarian low-density structure with small amount of free fluid in the pelvis, suggesting recently ruptured dominant follicle (no follow-up imaging is indicated).
[2019-10-20] MEDS ORDERED: NORMAL SALINE 1000 ML 1,000 ML IV ONE (22:39)
--- NOTE | 2019-10-20 22:45 | RADIOLOGY REPORT (SQ) ---
EXAM DESCRIPTION: XR CHEST 2 VIEWS COMPLETED DATE/TME: 10/20/2019 20:01 CLINICAL HISTORY: 39 years, Female, cp COMPARISON: 05/15/2017 chest NUMBER OF VIEWS: 2 TECHNIQUE: Frontal and lateral views of the chest LIMITATIONS: None. FINDINGS: The heart size is normal. The lungs are clear. There is no pneumothorax IMPRESSION: Negative chest copyright 2010 [employer]- All Rights Reserved
--- NOTE | 2019-10-20 23:44 | ER Document Report ---
ED General - General Chief Complaint: Headache Stated Complaint: LIGHTHEADED,HEADACHE,BLOOD IN STOOL Time Seen by Provider: 10/20/19 19:03 Primary Care Provider: CAMPOS GA MD [ACTIVE STAFF] - Follow up as needed KUMAR GOMES MD [ACTIVE STAFF] - Follow up as needed DASH TORRES DPM [ACTIVE STAFF] - Follow up as needed DANN JAMA MD [ACTIVE STAFF] - Follow up as needed TRAVEL OUTSIDE OF THE [place] IN LAST 30 DAYS: No - HPI Notes: Patient is a 39-year-old female who presents to the emergency department for evaluation. She states she was talking to a neighbor, felt as if she had to go to the bathroom. She was on her way home, went to urinate, and noticed a large amount of blood, bright red, pouring from her rectum. She states she has had some minimal left lower quadrant abdominal pain that she really cannot describe. She states she has a headache that is frontal in nature. She says she does not frequently get headaches, but she has had 1 similar to this. She states she checked her blood pressure and was markedly elevated. All of these issues prompted her to come to the emergency department for further evaluation. She has no history of GI bleeding. She states her pain is minimal in her abdomen but she really cannot describe it further for me. She denies any visual changes. Speaking and swallowing without difficulty. No chest pain or diffic ulty breathing. She denies any nausea or vomiting. Normal urination. No other acute complaints or concerns. She states she follows regularly with her primary care provider. She states that she is always been told her blood pressure is "normal" but she cannot give any numbers. - Related Data Allergies/Adverse Reactions: Penicillins Allergy (Intermediate, Verified 10/15/17 10:25) Rash, Hives metronidazole [Metronidazole] Adverse Reaction (Verified 10/15/17 10:25) Past Medical History - General Information source: Patient - Social History Smoking Status: Current Every Day Smoker Frequency of alcohol use: Occasional Drug Abuse: None Family History: CAD, CVA, DM, Hyperlipidemia, Hypertension, Other - asthma Patient has suicidal ideation: No Patient has homicidal ideation: No Pulmonary Medical History: Reports: Hx Asthma, Hx COPD Renal/ Medical History: Denies: Hx Peritoneal Dialysis Psychiatric Medical History: Reports: Hx Depression Past Surgical History: Reports: Hx Gynecologic Surgery - endometriosis, Hx Orthopedic Surgery - left knee x 2 - Immunizations Immunizations up to date: Yes Hx Diphtheria, Pertussis, Tetanus Vaccination: Yes Review of Systems - Review of Systems Constitutional: No symptoms reported EENT: No symptoms reported Cardiovascular: No symptoms reported Respiratory: No symptoms reported Gastrointestinal: See HPI Genitourinary: No symptoms reported Musculoskeletal: No symptoms reported Skin: No symptoms reported Neurological/Psychological: No symptoms reported Physical Exam - Vital signs Vitals: Temp Pulse Resp BP Pulse Ox 98.5 F 80 20 185/116 H 99 10/20/19 18:48 10/20/19 18:48 10/20/19 18:48 10/20/19 18:48 10/20/19 18:48 - Notes Notes: This is a 39-year-old female, anxious in appearance, who appears her stated age in no acute distress. Vital signs reviewed, please refer to chart. Head is normocephalic, atraumatic. Pupils equal round, reactive to light. Neck is supple without meningismus. Heart is regular rate and rhythm. Lungs are clear to auscultation bilaterally. Abdomen is soft, nontender, normoactive bowel sounds throughout. Extremities without cyanosis, clubbing. Posterior calves are nontender. Peripheral pulses are equal. Skin is warm and dry. Patient is awake, alert, oriented x3. Cranial nerves II - XII are grossly intact without focal neurological deficits. Strength is plus 5 out of 5 bilateral upper and lower extremities. Sensation is intact. Reflexes symmetrical. Intact [id number], rapid alternating movements, [id number]. Rectal exam was performed with MAMIE Lei, present. Patient has a large and tender external hemorrhoids, but none of them appear thrombosed. Good rectal tone, no gross blood on rectal examination. I did not appreciate any masses. Course - Re-evaluation Re-evalutation: 10/20/19 23:42 Patient presents to the emergency department for evaluation. She complains of multiple issues. Her blood pressure is elevated. She has a headache. She has GI bleeding and some abdominal pain. She had laboratory investigations and medications as ordered. She has CT scans of the head, abdomen and pelvis. She had chest x-ray performed. Her EKG revealed diffuse ST changes concerning for ischemia versus strain. She has no old studies available. The patient has no chest pain or shortness of breath, but I did discuss with her this finding. She might require further outpatient cardiac testing, and she voiced understanding to this. The patient also had significant GI bleeding, but does not have any bleeding at this time. Certainly these could be hemorrhoidal, but CT scan also revealed extensive diverticulosis. This may be the etiology of her bleeding as well. I explained to the patient, however, that she needs to follow-up closely with gastroenterology. Certainly we cannot rule out a more significant cause of her bleeding and she voiced understanding to this as well. In regards to her blood pressure, it came down significantly when her pain was improved. The patient also began crying at the prospect of having an IV placed. She states that she had significant complications from attempted IV placement in the past, and it was at that point that her blood pressure elevated. I suspect this is just situational, but strongly encouraged her to have her blood pressure checked as an outpatient as well. She was amenable to this plan as a whole. Otherwise her headache is feeling improved, her blood pressure is improved. Her CT scan reveals diverticulosis without diverticulitis, and she voiced understanding for need for follow-up in regards to her EKG and her GI bleeding. She is to return to the ED with worsening or new concerning symptoms of any sort. - Vital Signs Vital signs: Temp Pulse Resp BP Pulse Ox 98.5 F 80 18 171/108 H 99 10/20/19 18:48 10/20/19 18:48 10/20/19 22:00 10/20/19 21:05 10/20/19 22:00 - Laboratory Result Diagrams: 10/20/19 20:00 10/20/19 20:00 Laboratory results interpreted by me: 10/20/19 10/20/19 20:00 20:00 Plt Count 139 L Urine Blood MODERATE H - Diagnostic Test Radiology reviewed: Reports reviewed Radiology results interpreted by me: 10/20/19 23:44 Abdomen/Pelvis CT 10/20/19 19:05 IMPRESSION: 1. Extensive colonic diverticulosis, but no CT evidence for acute diverticulitis. Cannot exclude a bleeding diverticulum or early diverticulitis. 2. 12 mm left ovarian low-density structure with small amount of free fluid in the pelvis, suggesting recently ruptured dominant follicle (no follow-up imaging is indicated). Chest X-Ray 10/20/19 20:01 IMPRESSION: Negative chest copyright 2010 [employer]- All Rights Reserved Head CT 10/20/19 20:32 IMPRESSION: Unremarkable unenhanced CT brain TECHNICAL DOCUMENTATION: Quality ID # 436: Final reports with documentation of one or more dose reduction techniques (e.g., Automated exposure control, adjustment of the mA and/or kV according to patient size, use of iterative reconstruction technique) copyright 2010 [employer]- All Rights Reserved - EKG Interpretation by Me Additional EKG results interpreted by me: 10/20/19 23:55 Sinus mechanism with rate of 70 bpm. Normal axis and intervals. ST and T wave changes near global either concerning for ischemia versus strain. No ST elevation. No old studies available for comparison. Discharge - Discharge Clinical Impression: Lower GI bleed, Abnormal EKG, Elevated blood pressure reading without diagnosis of hypertension Headache Qualifiers: Headache type: unspecified Headache chronicity pattern: acute headache Intractability: not intractable Qualified Code(s): R51 - Headache Condition: Stable Disposition: OTHER Instructions: Electrogram Abnormality ([facility]), Headache ([facility]), High Blood Pressure ([facility]), Rectal Bleeding, Unclear Cause ([facility]) Additional Instructions: Your EKG showed some abnormalities that should be followed up. Discussed this with your primary care doctor, and whether or not a stress test is indicated. You did have hemorrhoids and diverticulosis on exam today. These are possible causes for bleeding, but you should see gastroenterology for further evaluation of your bleeding. If your bleeding worsens, or you develop new or concerning symptoms, you need to return immediately to the emergency department for evaluation. Otherwise, follow-up with primary care this week and seek out referral with cardiology/gastroenterology as discussed. Referrals: DASH TORRES DPM [ACTIVE STAFF] - Follow up as needed DANN JAMA MD [ACTIVE STAFF] - Follow up as needed CAMPOS GA MD [ACTIVE STAFF] - Follow up as needed KUMAR GOMES MD [ACTIVE STAFF] - Follow up as needed
[2019-10-21 00:16] VITALS: BP 141/83
== END 2019-10-21 00:21 | disposition other institution (70) ==
LOC: ER 18:03
DX: K92.2 Gastrointestinal hemorrhage, unspecified (principal); R94.31 Abnormal electrocardiogram [ECG] [EKG]; R03.0 Elevated blood-pressure reading, without diagnosis of hypertension; R51 Headache; R10.32 Left lower quadrant pain; F17.200 Nicotine dependence, unspecified, uncomplicated; Z88.0 Allergy status to penicillin
CPT/HCPCS: 93005; 96376; 99284; 96361; 96374; 96375; 36415; 83690; 84703; 85025; 80053; 81001; 84484; 80307; 71046; 70450; 74177; 93010; J2270 ×2; J2405; J7030

== ENCOUNTER 2019-10-30 11:26 | Day surgery (SDC) | payer MEDICAID ==
[~2019-10-30 11:26] MED LIST: LIDOCAINE 2% INJ-PF (20 MG/ML) 2 ML AMPUL ONE; PROPOFOL INJ 200 MG/20 ML VIAL IV ONE
[2019-10-30] MEDS ORDERED: PROPOFOL INJ 200 MG/20 ML VIAL IV ONE (13:44)
--- NOTE | 2019-10-30 15:09 | Operative Report ---
Operative Report DATE OF SURGERY: 10/30/19 Operative Report: The risk, benefits and alternatives of the procedure including the risk of bleeding, perforation requiring surgery have been explained to the patient in detail and informed consent has been obtained. Timeout was called. Propofol medication is administered. Rectal examination performed. Colonoscopy performed to the cecum. Intubation of the terminal ileum was noted. Prep is reasonably good. Upper endoscopy is done. Retroflexion maneuvers are performed. PREOPERATIVE DIAGNOSIS: Rectal bleeding. Dyspepsia POSTOPERATIVE DIAGNOSIS: Diverticulosis. Right colon inflammation status post biopsy. Internal hemorrhoids. Gastritis status post biopsy without Helicobacter pylori OPERATION: Colonoscopy with biopsy. EGD with biopsy SURGEON: DANN JAMA ANESTHESIA: LMAC TISSUE REMOVED OR ALTERED: As noted above. COMPLICATIONS: None. ESTIMATED BLOOD LOSS: None. INTRAOPERATIVE FINDINGS: As noted above. PROCEDURE: Patient tolerated the procedure well. No immediate postprocedure complications are noted. Patient is discharged in good condition. Discharge date 10/30/2019 Discharge diet: Regular. Discharge activity: Regular. 2 to 3-week follow-up to discuss findings. Patient is instructed to call the office or proceed to the emergency room should there be any further problems or questions. Wait on the pathology.
[2019-10-30 19:00] VITALS: BP 154/98
== END 2019-10-30 15:40 | disposition home or self-care (01) ==
LOC: OROUT 11:26
PROVIDERS: ATTEND Internal Medicine Gastroenterology
DX: K62.5 Hemorrhage of anus and rectum (principal); K57.30 Diverticulosis of large intestine without perforation or abscess without bleeding; K52.9 Noninfective gastroenteritis and colitis, unspecified; K64.8 Other hemorrhoids; K29.50 Unspecified chronic gastritis without bleeding; J45.909 Unspecified asthma, uncomplicated; I10 Essential (primary) hypertension; Z79.899 Other long term (current) drug therapy; Z79.51 Long term (current) use of inhaled steroids; Z88.0 Allergy status to penicillin; F17.210 Nicotine dependence, cigarettes, uncomplicated
CPT/HCPCS: 43239; 45380; 81025; 88305 ×2; 00813; J2704; J3490; 813

== ENCOUNTER → 2019-11-11 | Outpatient (CLI) | payer MEDICAID | LOC: OD 09:57 | PROVIDERS: ATTEND Physician Assistant | DX: Z53.9 Procedure and treatment not carried out, unspecified reason (principal) ==

== ENCOUNTER → 2020-06-15 | Outpatient (CLI) | payer MEDICAID | LOC: OD 13:10 | PROVIDERS: ATTEND Internal Medicine Cardiovascular Disease | DX: N91.2 Amenorrhea, unspecified (principal) | CPT/HCPCS: 36415; 84703 ==

== ENCOUNTER → 2020-07-05 | Outpatient (CLI) | payer MEDICAID ==
--- NOTE | 2020-07-05 17:05 | RADIOLOGY REPORT (SQ) ---
EXAM DESCRIPTION: SHOULDER LEFT 2 OR MORE VIEWS IMAGES COMPLETED DATE/TIME: 07/05/2020 4:07 pm REASON FOR STUDY: PAIN OF LEFT SHOULDER REGION M25.512 PAIN IN LEFT SHOULDER COMPARISON: None. NUMBER OF VIEWS: Three views. TECHNIQUE: Internal rotation, external rotation, and Y view images acquired of the left shoulder. LIMITATIONS: None. FINDINGS: MINERALIZATION: Normal. BONES: No acute fracture. No worrisome bone lesions. JOINTS: No dislocation. VISUALIZED LUNGS AND RIBS: No pneumothorax. No rib fracture. SOFT TISSUES: No radiopaque foreign body. OTHER: No other significant finding. IMPRESSION: NEGATIVE STUDY OF THE LEFT SHOULDER. NO RADIOGRAPHIC EVIDENCE OF ACUTE INJURY. TECHNICAL DOCUMENTATION: JOB ID: [id number] 2010 [employer] All Rights Reserved Reading location - IP/workstation name: [email or web address]
== END ==
LOC: OD 15:56
PROVIDERS: ATTEND Nurse Practitioner Family
DX: M25.512 Pain in left shoulder (principal)

== ENCOUNTER 2020-08-08 09:17 | Emergency (ER) | payer MEDICAID, OTHER ==
[2020-08-08] MEDS ORDERED: DIPHENHYDRAMINE HCL 50 MG/ML VIAL IV ONE ×2 (10:19→13:02)
[2020-08-08] MEDS ORDERED: METHYLPREDNISOLONE INJ 125 MG/2 ML SDV IV ONE (10:20)
[2020-08-08] MEDS ORDERED: FAMOTIDINE INJ/PF 20 MG/2 ML SDV IV ONE (10:20)
--- NOTE | 2020-08-08 10:21 | ER Document Report ---
ED Medical Screen (RME) - General Chief Complaint: Allergic Reaction Stated Complaint: ALLERGIC REACTION/RASH, SORE THROAT Time Seen by Provider: 08/08/20 10:17 Primary Care Provider: MODESTA HAMILTON FNP [Primary Care Provider] - Follow up as needed Notes: HPI: 39-year-old female presenting for allergic reaction. Patient states no new foods or medications. Started with a pruritic rash on the arms 2 days ago now across the chest abdomen. Patient complains of itching in her throat. No voice change. No shortness of breath. Took Benadryl twice yesterday with no improvement. PHYSICAL EXAMINATION: No angioedema is noted. No uvula edema is noted. Phonation is normal. Lung sounds are clear to auscultation generalized urticarial rash across the chest and abdomen I have greeted and performed a rapid initial assessment of this patient. A comprehensive ED assessment and evaluation of the patient, analysis of test results and completion of medical decision making process will be conducted by an additional ED providers. TRAVEL OUTSIDE OF THE [place] IN LAST 30 DAYS: No - Related Data Allergies/Adverse Reactions: Penicillins Allergy (Intermediate, Verified 08/08/20 10:17) Rash, Hives metronidazole [Metronidazole] Adverse Reaction (Verified 08/08/20 10:17) Past Medical History - Social History Chew tobacco use (# tins/day): No Frequency of alcohol use: Social Drug Abuse: None Family history: Reviewed & Not Pertinent - Past Medical History Cardiac Medical History: Reports: Hx Hypertension Denies: Hx Coronary Artery Disease, Hx Heart Attack Pulmonary Medical History: Reports: Hx Asthma, Hx Bronchitis, Hx COPD Denies: Hx Pneumonia Neurological Medical History: Denies: Hx Cerebrovascular Accident, Hx Seizures Renal/ Medical History: Denies: Hx Peritoneal Dialysis Musculoskeltal Medical History: Denies Hx Arthritis Psychiatric Medical History: Reports: Hx Depression Past Surgical History: Reports: Hx Gynecologic Surgery - endometriosis, Hx Orthopedic Surgery - left knee x 2 - Immunizations Immunizations up to date: Yes Hx Diphtheria, Pertussis, Tetanus Vaccination: Yes Physical Exam - Vital signs Vitals: Temp Pulse Resp BP Pulse Ox 98.1 F 59 L 17 133/98 H 98 08/08/20 10:02 08/08/20 10:02 08/08/20 10:02 08/08/20 10:02 11/22/20 10:02 Course - Vital Signs Vital signs: Temp Pulse Resp BP Pulse Ox 98.1 F 59 L 17 133/98 H 98 08/08/20 10:02 08/08/20 10:02 08/08/20 10:02 08/08/20 10:02 08/08/20 10:02 Doctor's Discharge - Discharge Referrals: MODESTA HAMILTON FNP [Primary Care Provider] - Follow up as needed
--- NOTE | 2020-08-08 14:13 | ER Document Report ---
ED Allergic Reaction - General Chief Complaint: Allergic Reaction Stated Complaint: ALLERGIC REACTION/RASH, SORE THROAT Time Seen by Provider: 08/08/20 10:17 Primary Care Provider: MODESTA HAMILTON FNP [Primary Care Provider] - Follow up as needed Notes: HPI: 39-year-old female presents today with the onset around 2 days ago of a rash to her chest, stomach, and upper extremities. She denies any cough, fever, vomiting, or obvious allergy contacts. She denies any new medications or supplements. No new foods. She does walk outside and is unsure whether she may have come into contact with poison radha. History of penicillin allergy. No diabetes or other medical conditions. ROS: See HPI All other review of systems reviewed and otherwise negative Reviewed vital signs and nursing note as charted by RN. PHYSICAL EXAM: CONSTITUTIONAL: Alert and oriented and responds appropriately to questions. Well-appearing; well-nourished HEAD: Normocephalic; atraumatic ENT: No lip, tongue, posterior pharyngeal swelling NECK: Supple without meningismus; non-tender; no cervical lymphadenopathy, no masses CARD: Regular rate and rhythm; no murmurs; symmetric distal pulses RESP: Normal chest excursion without splinting or tachypnea; breath sounds clear and equal bilaterally; no wheezing or stridor BACK: The back appears normal EXT: Normal ROM in all joints; non-tender to palpation; no edema SKIN: Blanching maculopapular lesions mostly to the upper chest and volar aspects of the extremities. No palm or sole lesions. No lower extremity or back lesions present NEURO: 5/5 bilateral upper and lower extremity strength with sensation intact to light touch PSYCH: The patient's mood and manner are appropriate. Grooming and personal hygiene are appropriate. TRAVEL OUTSIDE OF THE [place] IN LAST 30 DAYS: No - Related Data Allergies/Adverse Reactions: Penicillins Allergy (Intermediate, Verified 08/08/20 10:17) Rash, Hives metronidazole [Metronidazole] Adverse Reaction (Verified 08/08/20 10:17) Past Medical History - Social History Smoking Status: Never Smoker Chew tobacco use (# tins/day): No Frequency of alcohol use: Social Drug Abuse: None Family History: CAD, CVA, DM, Hyperlipidemia, Hypertension, Other - asthma - Past Medical History Cardiac Medical History: Reports: Hx Hypertension Denies: Hx Coronary Artery Disease, Hx Heart Attack Pulmonary Medical History: Reports: Hx Asthma, Hx Bronchitis, Hx COPD Denies: Hx Pneumonia Neurological Medical History: Denies: Hx Cerebrovascular Accident, Hx Seizures Renal/ Medical History: Denies: Hx Peritoneal Dialysis Musculoskeletal Medical History: Denies Hx Arthritis Psychiatric Medical History: Reports: Hx Depression Past Surgical History: Reports: Hx Gynecologic Surgery - endometriosis, Hx Orthopedic Surgery - left knee x 2 - Immunizations Immunizations up to date: Yes Hx Diphtheria, Pertussis, Tetanus Vaccination: Yes Physical Exam - Vital signs Vitals: Temp Pulse Resp BP Pulse Ox 98.1 F 59 L 17 133/98 H 98 08/08/20 10:02 08/08/20 10:02 08/08/20 10:02 08/08/20 10:02 08/08/20 10:02 Course - Re-evaluation Re-evalutation: 08/08/20 14:12 Given the history and physical examination, Benadryl, steroids, and Pepcid were provided. Patient was monitored in the emergency department for period of time with some resolution of the symptoms. Patient has no wheezing, abdominal pain or vomiting, lip, tongue, posterior pharyngeal swelling with vital signs are stable. I will provide the patient with a course of steroids given the possibility of poison radha/sumac. Patient will be discharged home with strict return precautions and follow-up with the primary care physician for possibly allergy testing. - Vital Signs Vital signs: Temp Pulse Resp BP Pulse Ox 98.1 F 59 L 17 133/98 H 98 08/08/20 10:02 08/08/20 10:02 08/08/20 10:02 08/08/20 10:02 08/08/20 10:02 Discharge - Discharge Clinical Impression: Acute allergic reaction Qualifiers: Encounter type: initial encounter Qualified Code(s): T78.40XA - Allergy, unspecified, initial encounter Condition: Good Disposition: HOME, SELF-CARE Additional Instructions: Come back immediately for any increased itching, difficulty breathing or swallowing, abdominal pain or fever, lip, tongue, face swelling, or any other acute problems. Please follow-up with your primary care physician for reassessment as discussed. In addition to the steroids I provided you can also take a course of Benadryl, 50 mg, every 6 hours. Please do not use the Benadryl if you going to go operate a car or engage in other potential dangerous activities. Prescriptions: Prednisone [Deltasone 20 mg Tablet] 20 tab PO DAILY 5 Days #23 tablet Epinephrine [Epipen 2-Huber] 0.3 mg IJ ASDIR PRN #1 [email or web address] PRN Reason: Referrals: MODESTA HAMILTON FNP [Primary Care Provider] - Follow up as needed
[2020-08-08 14:23] VITALS: BP 140/95
== END 2020-08-08 14:30 | disposition home or self-care (01) ==
LOC: ER 09:17
DX: T78.40XA Allergy, unspecified, initial encounter (principal); R21 Rash and other nonspecific skin eruption; I10 Essential (primary) hypertension; J44.9 Chronic obstructive pulmonary disease, unspecified; Z88.0 Allergy status to penicillin
CPT/HCPCS: 96376; 99284; 96374; 96375; J1200; J2930; S0028